=== PATIENT | male | born 1945 | race Caucasian/White ===

== ENCOUNTER 2023-08-01 10:30 | Emergency (ER) | payer MEDICARE, OTHER, SELFPAY ==
--- NOTE | ~2023-08-01 | XR_ITS ---
EXAMINATION: XR CLAVICLE, shoulder RIGHT CLINICAL INFORMATION: Fall COMPARISON: None available. TECHNIQUE: 2 views right clavicle, 2 views right shoulder frontal and scapular Y view, total of 4 views FINDINGS: Cephalad migration of humeral head, subluxation might be sequela of chronic rotator cuff derangement. No fracture. There are degenerative osteoarthritic changes of acromioclavicular joint. XR/XR clavicle RT IMPRESSION: * No fracture. * Cephalad migration of humeral head might be sequela of chronic rotator cuff derangement. This can be assessed by MRI if clinically indicated. * DJD AC joint.
--- NOTE | ~2023-08-01 | XR_ITS ---
EXAMINATION: XR CLAVICLE, shoulder RIGHT CLINICAL INFORMATION: Fall COMPARISON: None available. TECHNIQUE: 2 views right clavicle, 2 views right shoulder frontal and scapular Y view, total of 4 views FINDINGS: Cephalad migration of humeral head, subluxation might be sequela of chronic rotator cuff derangement. No fracture. There are degenerative osteoarthritic changes of acromioclavicular joint. XR/XR shoulder RT min 2V IMPRESSION: * No fracture. * Cephalad migration of humeral head might be sequela of chronic rotator cuff derangement. This can be assessed by MRI if clinically indicated. * DJD AC joint.
--- NOTE | ~2023-08-01 | CT_ITS ---
Examination: CT brain and CT cervical spine without contrast. Clinical indications: Fall. COMPARISON: None. TECHNIQUE: 5 mm thin axial and reformatted 2 mm thin sagittal coronal images of brain were obtained. Subsequently axial 3 mm thin and reformatted 2 mm thin sagittal and coronal images of cervical spine were obtained. DLP 1005. This CT examination was performed using dose optimization technique as appropriate, variously including the following: Automated exposure control Adjustment of MA and/or KV according to patient size(this includes techniques or standardized protocols for targeted exams where dose is matched to indication/reason for exam; extremities or head. Use of iterative reconstruction techniques. FINDINGS: Brain: There is no acute intra-axial, extra-axial bleed, masses or midline shift. There is no acute infarction in evolution. There is no edema. The lateral ventricles bilaterally are symmetrical in size and configuration but enlarged. There is mild periventricular hypodensity in both cerebral hemispheres without mass effect. Bone windows reveal no calvarial abnormality. There is diffuse mucoperiosteal thickening involving bilateral ethmoid and frontal sinuses. Rest the paranasal sinuses and mastoid air cells are well-aerated. Cervical spine: On sagittal reconstructed images there is maintained cervical lordosis. The vertebral heights and alignment is normal. Is loss of C5-C6, C6/C7 and C7-T1 disc heights with mild ventral spondylosis. The craniovertebral junction and the C1-C2 alignment is normal. There is mild left C3-C4, moderate C4-C5, C5-C6 facet joint arthropathy and hypertrophy. No visible acute fracture, dislocation or subluxation seen. The prevertebral and paravertebral soft tissues are normal. The pharyngeal and bronchial airway is widely patent. The lung apices are clear. CT/CT cervical spine wo IV con IMPRESSION: 1. No acute intracranial process seen. 2. Chronic bilateral ethmoid and frontal sinus inflammatory changes. 3. Degenerative disc changes C5-C6, C6-C7 and C7-T1 disc levels with ventral spondylosis. No visible acute fracture, dislocation or subluxation seen in cervical spine.
--- NOTE | ~2023-08-01 | XR_ITS ---
EXAMINATION: XR HIP, RIGHT , AP pelvis CLINICAL INFORMATION: Fall COMPARISON: None available at the time of this dictation. TECHNIQUE: Frontal and lateral views of the hip acquired. , AP pelvis 3 views FINDINGS: There is no evidence of acute fracture or dislocation. There are mild degenerative arthritic changes of the hip evident by sclerotic changes of the acetabular roof and narrowing of the joint space. Mild degenerative changes of the symphysis pubis. Mild degenerative changes of the SI joints. Adjacent pubic rami are intact. Surrounding soft tissues are unremarkable. XR/XR hip RT w PEL1V IMPRESSION: Mild degenerative arthritis. .
--- NOTE | 2023-08-01 11:00 | ED.GENADULT ---
HPI - General Adult General Chief complaint: Fall Stated complaint: DIZZY W/FALL,HIT HEAD,R SHOULDER,-LOC,-THIN PER EM Time Seen by Provider: 08/01/23 10:57 Source: patient, EMS, RN notes reviewed and old records reviewed Mode of arrival: EMS History of Present Illness HPI narrative: 77-year-old male with a past medical history of memory issues presenting to the ED via EMS from [facility] complaining of mild headache, neck and right shoulder soreness s/p mechanical trip and fall [employer]ACHINE [employer]. Patient states he tripped, denies symptoms prior to fall. Does admit to feeling lightheaded/dizzy after fall with + head strike, denies LOC or taking anticoagulation (takes ASA occasionally). Denies nausea/vomiting, vision pain/loss, CP/SOB, abdominal pain, back pain Related Data Allergies Allergy/AdvReac Type Severity Reaction Status Date / Time No Known Allergies Allergy Verified 08/01/23 11:10 Review of Systems Review of Systems: Constitutional: No Fever, No Chills, No Fatigue, No Malaise ENT/Mouth: No Ear Pain, No Nasal Congestion, No sore throat, No Rhinorrhea, No Swallowing Difficulty Eyes: No Eye Pain, No Swelling, No Redness, No Vision Changes Cardiovascular: No Chest Pain, No SOB Respiratory: No Cough, No Sputum, No Dyspnea Gastrointestinal: No Nausea, No Vomiting, No Diarrhea, No Constipation, No Abdominal pain Genitourinary: No Dysuria, No Urinary Frequency, No Hematuria, No Urinary Incontinence/retention, No Flank Pain Musculoskeletal: + joint pain, No Myalgias, No Joint Swelling Skin: No Skin Lesions, No rash Neuro: No Weakness, No Numbness, No Paresthesias, No Loss of Consciousness, + lightheaded/ Dizziness after fall, + Headache, +head strike Yes all other systems are reviewed and are negative Constitutional: Constitutional: Reports as per HPI Neurologic: Denies Abnormal speech present [facility] Past Medical History Attestation statement: The following information was validated with the patient. Source: old records reviewed Social History Social History Advance Directives: Yes Advance Directives on File: Yes Advance Directives Date on File: 08/01/23 Physical Exam ED Vital Signs: Vital Signs - 24 hr 08/01/23 11:03 Temperature 99.0 F Pulse Rate 82 Respiratory Rate 14 Blood Pressure 154/63 H Pulse Oximetry 96 Oxygen Delivery Method Room Air BMI result Body Mass Index 21.6 Const General: cooperative, healthy appearing, comfortable and no acute distress Orientation/consciousness: patient oriented x3 Limitations: no limitations HENMT Head: Yes normal to inspection, Yes atraumatic, No Morse's sign and No raccoon eyes Ears: hearing grossly normal bilaterally General nose exam: Normal external nose present Face and sinus: Yes normal facial exam Mouth: Normal oral and palatal mucosa present Throat: Yes posterior oropharynx normal, Yes tonsils normal, Yes uvula midline and No uvular edema Eyes General: appearance normal, both eyes and all related structures Pupils: Equal, round and reactive pupils present EOM: EOMs intact bilaterally Neck Other: C-collar in place Neck: Yes normal visual inspection and Yes no meningeal signs Chest Chest palpation & inspection: normal inspection of the chest Resp Effort & Inspection: normal respiratory effort and no respiratory distress Auscultation: clear to auscultation bilaterally Cardio Rate: regular rate Heart sounds: S1 normal heart sound present and S2 normal heart sound present Peripheral pulses: Peripheral pulses 2+ throughout GI Inspection: Yes normal to inspection Palpation (GI): Soft to palpation, nontender, no guarding and not rigid General: Yes no CVA tenderness Back/Spine/Pelvis Other: No midline cervical/thoracic/lumbar spinous tenderness/step-off or deformity Back: no CVA tenderness Skin Rashes: no rashes Wounds: no wounds Neuro General: patient oriented x3, tone normal, moves all extremities, no meningeal signs, no focal motor deficits and CN's II-XI intact bilaterally Cranial nerves: Yes CN's II-XII intact bilaterally, Yes Equal, round and reactive pupils present and Yes Bilaterally intact EOM present Cognition (Neuro): normal cognition Speech: No Abnormal speech present Motor exam (neuro): 5/5 motor strength present throughout Extrem Other: Right shoulder without noted deformity, nontender, ROM limited 2/2 pain. NV intact distally Pelvis stable, FROM hips intact General: Yes normal to inspection Course Course Course Narrative: -1246--CT head/brain wo IV con/CT cervical spine wo IV con IMPRESSION: 1. No acute intracranial process seen. 2. Chronic bilateral ethmoid and frontal sinus inflammatory changes. 3. Degenerative disc changes C5-C6, C6-C7 and C7-T1 disc levels with ventral spondylosis. No visible acute fracture, dislocation or subluxation seen in cervical spine. XR shoulder RT min 2V/XR clavicle RT IMPRESSION: * No fracture. * Cephalad migration of humeral head might be sequela of chronic rotator cuff derangement. This can be assessed by MRI if clinically indicated. * DJD AC joint. XR hip RT w PEL1V IMPRESSION: Mild degenerative arthritis. > will ambulate trial patient. C-spine cleared. Patient ambulated in the ED safely. Son will pick patient up and transport back to [facility] Results discussed with patient including worrisome signs and symptoms and strict return precautions, and when to return to the emergency department. They verbalized understanding and feel safe for discharge at this time. Medications Administered Discontinued Medications Generic Name Dose Route Start Last Admin Trade Name Freq PRN Reason Stop Dose Admin Acetaminophen 650 mg 08/01/23 11:10 08/01/23 11:22 Acetaminophen 325 Mg Tablet PO 08/01/23 11:11 650 mg ONCE ONE Administration Medical Decision Making Medical Decision Making [facility] Narrative: 77-year-old male with a past medical history of memory issues presenting to the ED via EMS from [facility] complaining of mild headache, neck and right shoulder soreness s/p mechanical trip and fall [employer] with + head strike, denies LOC. On exam vital signs stable, NAD, nontoxic appearing, C-collar in place, no midline spinous tenderness throughout. Physical exam as above. When moving patient for exam developed right upper thigh discomfort. Pelvis stable. Concern for ICH vs fractures. Lower suspicion for CVA/TIA, ACS, syncope, intrathoracic or intra-abdominal injury/bleeding without tenderness on exam. Plan: EKG, head/C-spine CT, x-rays, pain management, ambulation trial Please refer to course for remaining clinical decision making, interpretation of labs/imaging results, and discussions with consultants and/or family members. Differential Diagnosis Differential Diagnoses: The differential diagnosis associated with the presentation includes As above Admission/Observation Consideration of admission/observation: Escalation of care including admission/observation considered Lab Data [facility] Lab Attestation statement: I reviewed the patient's lab results. Independent Interpretation I performed an independent interpretation of an: EKG (My interpretation EKG normal sinus rhythm rate of 75. Pr interval 180. QTC 426. + RBBB. No STEMI. No priors to compare), Plain X-Ray and CT Scan Radiology Impression Discussion of test interpretation with radiology: I have reviewed the radiologist's reading. Independent Historian Clinical information obtained from an independent historian. History obtained from or confirmed by: EMS External Record Review External record reviewed: Inpatient record, Office record, Outpatient record, Prior outpatient labs, Prior outpatient radiology, Primary care record and Outside ED record Tests considered The following testing was considered but not selected: As above Prescription Management I considered prescription management with: Pain Medication Chronic Conditions Patient?s care impacted by: Other Social Determinants Patient?s care significantly limited by Social Determinants of Health including: Problems related to primary support group and Other Social Determinant of Health Discharge Plan Discharge Clinical Impression: Head injury, Acute pain of right shoulder, Neck pain, Fall Patient Disposition: Still a Patient
[2023-08-01 11:03] VITALS: BP 150/88; BP 154/63; PULSE 82; PULSE 92; RESP 14; TEMP 37.2; O2SAT 96; O2SAT 98; BMI 21.6
--- NOTE | 2023-08-01 11:10 | ECG_ITS ---
Test Reason : DIZZY, FALL Blood Pressure : / mmHG Vent. Rate : 075 BPM Atrial Rate : 075 BPM P-R Int : 180 ms QRS Dur : 120 ms QT Int : 382 ms P-R-T Axes : 072 -34 075 degrees QTc Int : 426 ms Normal sinus rhythm Left axis deviation Right bundle branch block Septal infarct , age undetermined Abnormal ECG No previous ECGs available Referred By: Perla Barry Electronically Signed By:KAMERON GONZALES
[2023-08-01] MEDS: Acetaminophen 325 MG TABLET 650 MG PO (11:22)
--- NOTE | 2023-08-01 13:17 | PC.NURSE ---
patient was able to ambulate with steady gait around ER with walker at his baseline, offering no complaints to this RN, verbalizes having no pain, resiprations even and unlabored, skin pwd, alert and oriented x4. This RN called patient's who stated her son will picking the patient up
[2023-08-01 13:49] VITALS: PULSE 74; RESP 16; O2SAT 97
== END 2023-08-01 13:55 | disposition home or self-care (01) ==
PROVIDERS: Emergency Provider Emergency Medicine Emergency Medical Services; PCP Family Medicine
DX: S09.90XA Unspecified injury of head, initial encounter (principal); W01.0XXA Fall on same level from slipping, tripping and stumbling without subsequent striking against object, initial encounter; M25.511 Pain in right shoulder; M54.2 Cervicalgia; Y93.9 Activity, unspecified; Y92.129 Unspecified place in nursing home as the place of occurrence of the external cause; Y99.9 Unspecified external cause status
CPT/HCPCS: 70450; 72125; 73000; 73030; 73502; 93005; 99284

== ENCOUNTER → 2023-08-01 11:10 | Outpatient (BNV) | payer MEDICARE, OTHER, SELFPAY | PROVIDERS: Emergency Provider Emergency Medicine Emergency Medical Services; PCP Family Medicine; Visit Provider Internal Medicine | DX: R94.31 Abnormal electrocardiogram [ECG] [EKG] (principal); I45.10 Unspecified right bundle-branch block | CPT/HCPCS: 93010 ==

== ENCOUNTER 2023-10-01 10:39 | Outpatient (REF) | payer MEDICARE, OTHER, SELFPAY | END 2023-10-01 10:40 | disposition home or self-care (01) | LOC: HO.SH 10:39 | PROVIDERS: Visit Provider Family Medicine | DX: H61.22 Impacted cerumen, left ear (principal) | CPT/HCPCS: 92567 ==

== ENCOUNTER 2023-11-07 07:55 | Emergency (ER) | payer MEDICARE, OTHER, SELFPAY ==
--- NOTE | ~2023-11-07 | XR_ITS ---
EXAMINATION: XR CHEST CLINICAL INFORMATION: Syncope COMPARISON: None available. TECHNIQUE: 2 views of the chest were obtained. FINDINGS: The lungs are well-expanded and clear of acute process. The heart size and pulmonary vascularity is normal. There is mild spondylosis dorsal spine. No aggressive lytic or sclerotic process seen. XR/XR chest 2V IMPRESSION: Unremarkable chest exam.
--- NOTE | ~2023-11-07 | CT_ITS ---
EXAMINATION: CT brain and CT cervical spine without contrast. CLINICAL INDICATIONS: Fall, head strike and syncope. COMPARISON CT brain 08/01/2023 TECHNIQUE: 5 mm thin axial and reformatted 2 mm thin sagittal and coronal images of brain were obtained. Subsequently axial 3 mm thin and reformatted 2 mm thin sagittal and coronal images of cervical spine were obtained. DLP 1015 mGy/cm This CT examination was performed using dose optimization technique as appropriate, variously including the following: Automated exposure control Adjustment of MA and/or KV according to patient size(this includes techniques or standardized protocols for targeted exams where dose is matched to indication/reason for exam; extremities or head. Use of iterative reconstruction techniques. FINDINGS: Brain: There is no acute intra-axial, extra-axial bleed, masses or midline shift. There is no acute infarction in evolution. There is no edema. There is mild periventricular hypodensity in both cerebral hemispheres without mass effect. The lateral ventricles are symmetrical in size and configuration without enlargement. Bone windows reveal no calvarial abnormality. There is no scalp soft tissue abnormality. Bilateral paranasal sinuses and mastoid air cells are well-aerated. Cervical spine: On sagittal reconstructed images there is normal cervical lordosis. The vertebral heights and alignment is normal. There is mild loss of C5-C6, C6-C7 and C7-T1 disc heights with moderate ventral and mild posterior spondylosis. The craniovertebral junction and the C1-C2 alignment is normal there is moderate left C3-C4 significant C4-C5 and C5-C6 facet joint arthropathy and hypertrophy. No visible acute fracture, dislocation or subluxation seen. The prevertebral and paravertebral soft tissues are normal. CT/CT cervical spine wo IV con IMPRESSION: 1. No acute intracranial process seen. 2. There is no acute fracture, dislocation or subluxation seen. There are degenerative disc changes C5-C6, C6-C7 and C7-T1 disc levels with ventral and posterior spondylosis.
[2023-11-07 08:02] VITALS: BP 142/68; PULSE 86; O2SAT 99
[2023-11-07 08:03] VITALS: BP 155/75; PULSE 87; RESP 18; TEMP 36.1; O2SAT 100; BMI 23.4
--- NOTE | 2023-11-07 08:30 | ED_ITS ---
HPI - General Adult General Chief complaint: Fall Stated complaint: SLIP NO FALL,FROM [facility] PER EMS Time Seen by Provider: 11/07/23 08:14 Source: patient, EMS and RN notes reviewed Mode of arrival: EMS History of Present Illness HPI narrative: Patient is an 78-year-old male with history of memory issues presenting to the emergency department from assisted living facility after fall. EMS reported that patient was ambulating to the bathroom and fell backwards onto his bed, then slid to a seated position on the floor. Patient stating now that he had a syncopal episode, got up had another episode of syncope/near-syncope which was when he fell onto bed and slid to the floor. States he is unsure of head strike with initial episode of syncope. He reports feeling lightheaded/dizzy prior to syncope. He currently denies any chest pain, palpitations or shortness of breath. He is unsure if he is anticoagulated or not. Spoke with patient's via telephone who reports that she heard the patient get out of bed, then she felt him fall forward onto her legs, he immediately stood back up and continued around the bed to go to the bathroom, when he fell again, this time backwards against the bed, sliding to the floor. She states that she does not feel he passed out. He denies headache, vision changes, chest pain, palpitations, or shortness of breath. MD complaint: syncope/fall Related Data Allergies Allergy/AdvReac Type Severity Reaction Status Date / Time No Known Allergies Allergy Verified 08/01/23 11:10 [facility] Social History Social History Smoked in Last 30 Days: No Use of substances other than those prescribed or required for medical reasons: No Advance Directives: Yes Advance Directives on File: Yes Advance Directives Date on File: 08/01/23 Physical Exam ED Vital Signs: Vital Signs - 24 hr 11/07/23 08:03 11/07/23 14:20 Temperature 97 F 98.0 F Pulse Rate 87 91 Respiratory Rate 18 16 Blood Pressure 155/75 H 142/73 H Pulse Oximetry 100 100 Oxygen Delivery Method Room Air Room Air BMI result Body Mass Index 23.4 Medications Administered Discontinued Medications Generic Name Dose Route Start Last Admin Trade Name Freq PRN Reason Stop Dose Admin Docusate Sodium 100 mg 11/07/23 12:30 11/07/23 12:40 Docusate Sodium 100 Mg/10 Ml Liquid PO 11/07/23 12:31 100 mg ONCE ONE Administration Medical Decision Making Medical Decision Making [facility] Narrative: Patient is an 78-year-old male with history of memory issues presenting to the emergency department from assisted living facility after fall. On exam patient is awake, A+Ox3, BP elevated, VS otherwise WNL, afebrile, normal neurological exam without focal deficits, physical exam findings as above. Given reported symptoms and physical exam findings, initial differential includes arrhythmia, ACS, aortic stenosis, PE, pericardial effusion, aortic dissection, SAH/CVA/TIA, electrolyte abnormality, anemia, infection such as UTI/PNA. PE unlikely based on Wells score of 0. Labs notable for no leukocytosis, mild microcytic anemia, mild hyponatremia, no significant electolyte abnormalities, negative initial troponin, will repeat. EKG shows sinus rhythm with first degree AV block, RBBB present on prior EKG. No evidence of pneumonia on CXR. CT notable for no evidence of ICH, fracture/subluxation of skull or c-spine. My interpretation is in agreement with the radiologist's interpretation. Patient's son noted that patient's has been administering debrox drops for bilateral cerumen impactions, and is wondering if this is causing patient to feel dizzy. Bilateral cerumen impaction noted on exam, and both ears irrigated with significant cerumen removal. Spoke with patient's via telephone who feels comfortable with him returning home but is agreeable to PT eval. Patient evaluated by physical therapy who recommended in home PT. Discussed this with Alyson from , and patient will be discharged home with [facility] for nursing home and physical therapy. Feel patient is stable for discharge home at this time. Instructed patient to follow-up with his PCP. Return precautions discussed. Patient's son, Alexandre, at bedside during this discussion and verbalized understanding of this as well. Differential Diagnosis Differential Diagnoses: The differential diagnosis associated with the presentation includes As per [facility] Admission/Observation Consideration of admission/observation: Escalation of care including admission/observation considered Patient would have been admitted to the hospital had their work up had any findings where hospital admission was appropriate and their clinical presentation warranted hospital admission. Lab Data [facility] Lab Attestation statement: I reviewed the patient's lab results. As per [facility]. 11/07/23 10:01 11/07/23 10:01 Labs: Lab Results 11/07/23 11/07/23 11/07/23 Range/Units 10:01 10:26 13:56 WBC 3.7 L (4.8-10.8) X10*3/uL RBC 3.64 L (4.60-5.80) X10*6/uL Hgb 11.6 L (14.0-18.0) g/dl Hct 33.1 L (42.0-52.0) % MCV 90.9 (80.0-98.0) fL MCH 31.9 (27.0-33.0) pg MCHC 35.0 (31.0-36.0) g/dl RDW 12.7 (11.0-16.0) % Plt Count 237 (160-400) X10*3/uL MPV 8.2 L (9.4-12.4) fL Immature Gran % (Auto) 0.5 H (0.0-0.4) % Neut % (Auto) 59.4 (45-73) % Lymph % (Auto) 23.3 (20-40) % [place] % (Auto) 13.8 H (2-11) % Eos % (Auto) 2.2 (0-4) % Baso % (Auto) 0.8 (0-2) % Lymph # (Auto) 0.9 L (1.2-4.9) X10*3/uL [place] # (Auto) 0.5 (0.1-1.2) X10*3/uL Eos # (Auto) 0.1 (0.0-0.4) X10*3/uL Baso # (Auto) 0.0 (0.0-0.2) X10*3/uL Abs Immat Gran (auto) 0.02 (0.00-0.03) X10*3/uL Absolute Neuts (auto) 2.2 (2.0-8.3) x10*3/uL Absolute Nucleated RBC 0.000 (0.0-0.012) X10*3/uL Nucleated RBC % (auto) 0.0 (0.0-0.2) /100WBC PT 11.6 (11.1-13.3) SEC INR 1.0 (0.9-1.1) Sodium 131 L (135-145) mmol/L Potassium 4.3 (3.3-5.1) mmol/L Chloride 96 (96-108) mmol/L Carbon Dioxide 28 (22-29) mmol/L Anion Gap 11 L (12-20) BUN 11 (9-16) mg/dL Creatinine 0.66 (0.5-1.4) mg/dL Estim Creat Clear Calc 83.4 Estimated GFR > 60 Random Glucose 102 (60-115) mg/dL Calcium 9.6 (8.4-10.2) mg/dL Total Bilirubin 0.6 (0.0-1.0) mg/dL AST 19 (5-37) U/L ALT 10 (0-40) U/L Alkaline Phosphatase 70 (39-117) U/L Troponin I High Sens 2.7 4.8 D (<3.5-35.0) ng/L Total Protein 6.8 (6.5-8.0) g/dL Albumin 4.1 (3.5-5.0) g/dL Urine Color Yellow Urine Appearance Clear Urine pH 8.5 (5.0-9.0) Ur Specific [place] <= 1.005 (1.005-1.025) Urine Protein Negative (Neg-Trace) mg/dL Urine Glucose (UA) Negative (Negative) mg/dL Urine Ketones Negative (Negative) mg/dL Urine Blood Negative (Negative) Urine Nitrite Negative (Negative) Ur Leukocyte Esterase Negative (Negative) Influenza Type A (PCR) NEGATIVE (Negative) Influenza Type B (PCR) NEGATIVE (Negative) RSV RNA Qual (PCR) NEGATIVE (Negative) SARS-CoV-2 RNA (RT-PCR) NEGATIVE (Negative) Independent Interpretation I performed an independent interpretation of an: Plain X-Ray and CT Scan Interpretation: CT notable for no evidence of ICH, fracture/subluxation of skull or c-spine. No evidence of pneumonia on CXR. Radiology Impression Discussion of test interpretation with radiology: I have reviewed the radiologist's reading. Radiologist Impression: XR/XR chest 2V IMPRESSION: Unremarkable chest exam. CT/CT head/brain wo IV con IMPRESSION: 1. No acute intracranial process seen. 2. There is no acute fracture, dislocation or subluxation seen. There are degenerative disc changes C5-C6, C6-C7 and C7-T1 disc levels with ventral and posterior spondylosis. Independent Historian Clinical information obtained from an independent historian. History obtained from or confirmed by: Spouse and Other (Son, Alexandre) External Record Review External record reviewed: Inpatient record, Office record and Outpatient record Discharge Plan Discharge Clinical Impression: Fall Patient Disposition: Home, Self-Care Instructions: Fall Prevention for Older Adults (ED), Fall Prevention (ED) Additional Instructions: You were evaluated in the emergency department today after a fall. Your evaluation including labs, urinalysis, chest x-ray, CT scan of brain and c-spine did not show evidence of conditions requiring emergent medical treatment at this time. You were evaluated by the physical therapist who recommended home PT. The telehealth case manager is setting this up for you. Please follow up with your primary care provider. Return to the emergency room if you develop severe headache, dizziness, lightheadedness, chest pain, shortness of breath, palpitations, changes in vision, or any other concerning symptoms.
--- NOTE | 2023-11-07 09:04 | ECG_ITS ---
Test Reason : DIZZY Blood Pressure : / mmHG Vent. Rate : 077 BPM Atrial Rate : 077 BPM P-R Int : 214 ms QRS Dur : 124 ms QT Int : 394 ms P-R-T Axes : 079 -36 067 degrees QTc Int : 445 ms Sinus rhythm with 1st degree A-V block Left axis deviation Right bundle branch block Septal infarct , age undetermined Abnormal ECG When compared to the previous EKG of No significant changes seen Referred By: Leydi Foley Electronically Signed By:LAURA PARADA MD
[2023-11-07 10:06] LABS: MANUAL DIFF FLAG NO
[2023-11-07 10:07] LABS: Basophils Percent Auto 0.8 % (0-2); Eosinophils Absolute Auto 0.1 X10*3/uL (0.0-0.4); Eosinophils Percent Auto 2.2 % (0-4); Hematocrit 33.1 % (42.0-52.0); Hemoglobin 11.6 g/dl (14.0-18.0); Imm Gran Abs Auto 0.02 X10*3/uL (0.00-0.03); Imm Gran Pct Auto 0.5 % (0.0-0.4); Lymphocytes Absolute Auto 0.9 X10*3/uL (1.2-4.9); Lymphocytes Percent Auto 23.3 % (20-40); Mean Corpuscular Hemoglobin 31.9 pg (27.0-33.0); Mean Corpuscular Volume 90.9 fL (80.0-98.0); Mean Platelet Volume 8.2 fL (9.4-12.4); Monocytes Absolute Auto 0.5 X10*3/uL (0.1-1.2); Monocytes Percent Auto 13.8 % (2-11); Neutrophils Absolute Auto 2.2 x10*3/uL (2.0-8.3); Neutrophils Percent Auto 59.4 % (45-73); Platelet Count 237 X10*3/uL (160-400); Red Blood Count 3.64 X10*6/uL (4.60-5.80); Red Cell Distribution Width 12.7 % (11.0-16.0); White Blood Count 3.7 X10*3/uL (4.8-10.8)
--- NOTE | 2023-11-07 10:16 | PC.NURSE ---
pamella sutton can be reached at [phone] or [phone]
[2023-11-07 10:24] LABS: Prothrombin Time 11.6 SEC (11.1-13.3)
[2023-11-07 10:28] LABS: Alanine Aminotransferase 10 U/L (0-40); Albumin Level 4.1 g/dL (3.5-5.0); Alkaline Phosphatase 70 U/L (39-117); Anion Gap 11 (12-20); Aspartate Amino Transferase 19 U/L (5-37); Bilirubin Total 0.6 mg/dL (0.0-1.0); Blood Urea Nitrogen 11 mg/dL (9-16); Calcium 9.6 mg/dL (8.4-10.2); Carbon Dioxide 28 mmol/L (22-29); Chloride 96 mmol/L (96-108); Creatinine Clr Calc Pharmacy 83.4; Estimated Glomerular Filt Rate > 60; Glucose Random 102 mg/dL (60-115); Potassium 4.3 mmol/L (3.3-5.1); Sodium 131 mmol/L (135-145); Total Protein 6.8 g/dL (6.5-8.0)
[2023-11-07 10:35] LABS: Troponin-I High Sensitivity 2.7 ng/L (<3.5-35.0)
[2023-11-07 11:00] LABS: Appearance Urine Clear; Color Urine Yellow; Glucose Urine UA Negative (Negative); Leukocyte Esterase Urine Negative (Negative); Nitrite Urine Negative (Negative); PH 8.5 (5.0-9.0); Specific Gravity - Urine <= 1.005 (1.005-1.025); Urine Blood Negative (Negative); Urine Ketones Negative (Negative); Urine Protein Negative (Neg-Trace)
[2023-11-07 11:05] LABS: Influenza A PCR NEGATIVE (Negative); Influenza B PCR NEGATIVE (Negative); Resp Syncy Virus RNA Qual PCR NEGATIVE (Negative); SARS COV2 PCR INHOUSE NEGATIVE (Negative)
[2023-11-07] MEDS: Docusate Sodium 100 MG/10 ML LIQUID PO (12:40)
--- NOTE | 2023-11-07 13:02 | PC.NURSE ---
per verbal provider order 5mls of liquid colace placed in each of patients ears
[2023-11-07 14:20] VITALS: BP 142/73; PULSE 91; RESP 16; TEMP 36.7; O2SAT 100
[2023-11-07 14:22] LABS: Troponin-I High Sensitivity 4.8 ng/L (<3.5-35.0)
--- NOTE | 2023-11-07 15:43 | MHC.CM.ED ---
Received case management consult from Leydi PIMENTEL. Patient will need [facility] for [facility] and physical therapy. [facility] able [facility] accept patient.
== END 2023-11-07 15:04 | disposition home or self-care (01) ==
PROVIDERS: Registered Nurse Emergency; Emergency Provider Emergency Medicine Emergency Medical Services; PCP Family Medicine
DX: S09.90XA Unspecified injury of head, initial encounter (principal); S29.9XXA Unspecified injury of thorax, initial encounter; R26.81 Unsteadiness on feet; R07.89 Other chest pain; R51.9 Headache, unspecified; M54.2 Cervicalgia; W01.10XA Fall on same level from slipping, tripping and stumbling with subsequent striking against unspecified object, initial encounter; Y93.9 Activity, unspecified; Y92.9 Unspecified place or not applicable; Y99.8 Other external cause status; Z11.52 Encounter for screening for COVID-19; Z20.822 Contact with and (suspected) exposure to COVID-19; Z79.899 Other long term (current) drug therapy
CPT/HCPCS: 0241U; 36415; 70450; 71046; 72125; 80053; 81003; 84484; 85025; 85610; 93005; 97162; 99284

== ENCOUNTER → 2023-11-07 09:04 | Outpatient (BNV) | payer MEDICARE, OTHER, SELFPAY | PROVIDERS: Emergency Provider Emergency Medicine Emergency Medical Services; Visit Provider Internal Medicine Cardiovascular Disease | DX: I44.0 Atrioventricular block, first degree (principal) | CPT/HCPCS: 93010 ==

== ENCOUNTER 2024-01-15 10:10 | Outpatient (REF) | payer MEDICARE, OTHER, SELFPAY | END 2024-01-15 10:11 | disposition home or self-care (01) | LOC: HO.SH 10:10 | PROVIDERS: Visit Provider Family Medicine | DX: Z01.118 Encounter for examination of ears and hearing with other abnormal findings (principal); H90.3 Sensorineural hearing loss, bilateral | CPT/HCPCS: 92557; 92567 ==